=== PATIENT | female | born 1965 ===

== ENCOUNTER 2023-08-08 11:10 | Outpatient (CLI) | payer MEDICAID, SELFPAY ==
--- NOTE | 2023-08-08 11:00 | RT.EKG_ITS ---
APPROVED REPORT Exam: Resting ECG Reason for Exam: baseline needed Patient Location: O HR:87 bpm ECG Measurements Heart Rate 87 AXIS VA 154 P 64 QRSd 93 QRS 43 QT 342 T 33 QTc 412 Conclusion Sinus rhythm...normal P axis, V-rate 50- 99 Borderline low voltage, extremity leads...all extremity leads <0.6mV
== END 2023-08-08 11:11 | disposition home or self-care (01) ==
LOC: DI.CARD 11:12
PROVIDERS: PCP Internal Medicine; Visit Provider Internal Medicine Cardiovascular Disease
DX: I42.2 Other hypertrophic cardiomyopathy (principal)
CPT/HCPCS: 93010